=== PATIENT | female | born 1945 | race Caucasian/White ===

== ENCOUNTER → 2016-06-06 13:52 | Outpatient (CLI) | payer MEDICARE, BC ==
[2014-05-28 05:56] VITALS: BMI 243.4
[~2016-06-06 13:52] MED LIST: CIPRO250 MG PO; GLUCOPHAGE500 MG PO; HYDROCODONE-APA1 TAB PO; LIPITOR40 MG PO; PERCOCET 10/3251 TA1 PO; SYNTHROID75 MCG PO; VITAMIN D5000 UNIT PO; XANAX0.25 MG PO; ZESTRIL10 MG PO
== END | disposition home or self-care (01) ==
LOC: D.MRI 13:52
DX: R41.3 Other amnesia (principal)

== ENCOUNTER → 2017-11-18 07:36 | Outpatient (CLI) | payer MEDICARE, BC ==
[2014-05-28 05:56] VITALS: BMI 243.4
== END | disposition home or self-care (01) ==
LOC: D.US 07:36
DX: R10.11 Right upper quadrant pain (principal)

== ENCOUNTER → 2017-12-21 08:50 | Outpatient (CLI) | payer MEDICARE, BC ==
[2014-05-28 05:56] VITALS: BMI 243.4
== END | disposition home or self-care (01) ==
LOC: D.NM 12-18 08:30
DX: R10.11 Right upper quadrant pain (principal)

== ENCOUNTER → 2018-05-11 09:26 | Outpatient (CLI) | payer MEDICARE, BC ==
[2014-05-28 05:56] VITALS: BMI 243.4
== END | disposition home or self-care (01) ==
LOC: D.CT 05-03 09:30
DX: R10.9 Unspecified abdominal pain (principal)